=== PATIENT | female | born 1930 | race Hispanic/Latino ===

== ENCOUNTER 2016-06-30 10:04 | Outpatient (CLI) | payer MEDICARE | END 2016-06-30 10:05 | disposition home or self-care (01) | LOC: NAVSJIPCSP 10:04 | PROVIDERS: ATTEND Internal Medicine | DX: E78.5 Hyperlipidemia, unspecified (principal); E11.65 Type 2 diabetes mellitus with hyperglycemia | CPT/HCPCS: 36415; 80061; 83036 ==

== ENCOUNTER 2016-08-22 11:00 | Emergency (ER) | payer MEDICARE ==
[2016-08-22] MEDS ORDERED: Ondansetron ODT 4 MG TAB ONE (12:13)
--- NOTE | 2016-08-22 12:49 | RAD ---
NASAL BONES 3 VIEWS: Date: 08/22/16 HISTORY: Fell, with injury to nose. FINDINGS/IMPRESSION: Evidence of fracture through the distal aspect of the nasal ridge; however, there is no significant displacement or depression. Paranasal sinuses are aerated. There is hazy opacity over the right fron ingrid air cell which suggests right frontal sinus mucosal edema. POS: [facility]
--- NOTE | 2016-08-22 12:53 | RAD ---
RIGHT TIBIA AND FIBULA 2 VIEWS: Date: HISTORY: Injury to left lower extremity. FINDINGS: No evidence of fracture. Mild degenerative changes at the knee. IMPRESSION: No acute osseous abnormality. POS: [facility]
== END 2016-08-22 12:27 | disposition home or self-care (01) ==
LOC: NAV ERS 11:00
DX: S02.2XXA Fracture of nasal bones, initial encounter for closed fracture (principal); S80.11XA Contusion of right lower leg, initial encounter; E11.9 Type 2 diabetes mellitus without complications; I10 Essential (primary) hypertension; Z79.82 Long term (current) use of aspirin; Z79.899 Other long term (current) drug therapy; W17.89XA Other fall from one level to another, initial encounter
CPT/HCPCS: 70160; Q0162

== ENCOUNTER 2016-09-29 09:17 | Outpatient (CLI) | payer MEDICARE ==
[2016-09-29 13:48] LABS: Cardiac Risk 3.3 (Less than 4.5)
== END 2016-09-29 09:18 | disposition home or self-care (01) ==
LOC: NAVSJIPCSP 09:17
PROVIDERS: ATTEND Internal Medicine
DX: E78.5 Hyperlipidemia, unspecified (principal); E11.51 Type 2 diabetes mellitus with diabetic peripheral angiopathy without gangrene
CPT/HCPCS: 36415; 80061; 83036

== ENCOUNTER 2017-01-04 09:41 | Outpatient (CLI) | payer MEDICARE ==
[2017-01-04 13:05] LABS: Hemoglobin A1c 5.2 % (4.0-6.0)
== END 2017-01-04 09:42 | disposition home or self-care (01) ==
LOC: NAVSJIPCSP 09:41
PROVIDERS: ATTEND Internal Medicine
DX: E78.5 Hyperlipidemia, unspecified (principal); E11.51 Type 2 diabetes mellitus with diabetic peripheral angiopathy without gangrene; Z79.899 Other long term (current) drug therapy
CPT/HCPCS: 36415; 80061; 83036

== ENCOUNTER 2017-09-01 01:04 | Emergency (ER) | payer MEDICARE ==
[2017-09-01] MEDS ORDERED: traMADol HCl 50 MG TAB ONE (01:34)
[2017-09-01] MEDS ORDERED: Ondansetron ODT 4 MG TAB ONE (01:34)
--- NOTE | 2017-09-01 08:03 | RAD ---
THREE VIEWS LUMBAR SPINE: Date: 09-01-17 Comparison: None. History: Cough, trauma, pain. FINDINGS: Subtle lucency is seen in the region of the right L1 transverse process and right 12th rib medially w hich may be artifact or on the basis of fracture. There is mild levoscoliosis of the lumbar spine. Pe dicles appear intact on frontal imaging. There is multilevel lower lumbar spine facet hypertrophic ch sandra. There is anterolisthesis of L4 on L5 measuring 8 mm. There is extensive atherosclerotic calcifi cation of the abdominal aorta. IMPRESSION: 1. Multilevel lower lumbar spine degenerative changes with anterolisthesis of L4 on L5. 2. Questionable subtle fracture of medial 12th rib on right and right L1 transverse process. POS: [facility]
--- NOTE | 2017-09-01 08:06 | RAD ---
TWO VIEWS RIGHT HIP: Date: 09-01-17 Comparison: None. History: Fall, trauma, pain. FINDINGS: No displaced fracture or evidence of dislocation is seen. There is mild superior joint space narrowin g with mild osteophyte formation involving the acetabular roof laterally. IMPRESSION: No acute findings. If patient is unable to bear weight, further assessment with cross sectional imagi ng suggested. POS: [facility]
--- NOTE | 2017-09-01 08:37 | CT ---
PRELIMINARY REPORT/[facility]/EMERGENCY AFTER HOURS PROCEDURE: EXAM: CT Lumbar Spine Without Intravenous Contrast CLINICAL HISTORY: 86 years old, female; injury; Fall; Initial encounter; Blunt trauma; Low back pain; Injury date: 08/30; Injury details: injuries to low back / right hip from fall 2 days ago landing on right side and back. Did not hit her head, no loc, no injury to neck; Prior surgery; date: 6+ months; shantell, hystere ctomy. Stents in leg and neck. TECHNIQUE: Axial computed tomography images of the lumbar spine without intravenous contrast. All CT scans at [facility] use one or more dose reduction techniques, viz.: automated exposure control; ma/kV adjustment per patient size (including targeted exams where dose is matched to indication; i.e. head) ; or iterative reconstruction technique. Coronal and sagittal reformatted images were created and reviewed. COMPARISON: No relevant prior studies available. FINDINGS: Vertebrae: Fracture of the right transverse process of L1. Mild retrolisthesis of L5 with respect to L4. Severe central canal stenosis at L4-5. Prominent Schmorl's node of the superior endplate of T12. Other bones/joints: Fracture of the right 12th medial rib. Old fracture of the right 11th posterior r ib. Discs/spinal canal/neural foramina: Severe central canal stenosis at L3-4. Soft tissues: Unremarkable. Gallbladder and bile ducts: Status post cholecystectomy. IMPRESSION: 1. Fracture of the right 12th medial rib. 2. Fracture of the right transverse process of L1. 3. Mild retrolisthesis of L5 with respect to L4. Severe central canal stenosis at L4-5. 4. Severe central canal stenosis at L3-4. Thank you for allowing us to participate in the care of your patient. Dictated and Authenticated by: Lukas Dominguez MD 09/01/2017 3:17 AM Central Time ([place] & [place]) FINAL REPORT CT LUMBAR SPINE WITHOUT CONTRAST: HISTORY: Fall. Injury. Pain. Low back pain. COMPARISON: None. TECHNIQUE: A lumbar spine CT is performed without contrast. Reformatted images are submitted for interpretation . FINDINGS: There is diffuse bone demineralization. There is anterolisthesis of L4 upon L5. There is no evidenc e of a lumbar spine fracture. There is irregularity involving the superior endplate of T12, producin g a chronic process. Acute fracture of the right L1 transverse process is present. Fracture of the right 12th rib is noted. This report is in agreement with a preliminary report by [facility]. POS: [facility]
--- NOTE | 2017-09-01 08:39 | CT ---
PRELIMINARY REPORT/[facility]/EMERGENCY AFTER HOURS PROCEDURE: EXAM: CT Right Lower Extremity Without Intravenous Contrast, Hip CLINICAL HISTORY: 86 years old, female; Pain and injury; Fall; Initial encounter; Blunt trauma right hip, Injury date: 08/30/17; Injury details: Injury to low back / right hip from fall 2 days ago. did not hit her head, no loc, no injury to neck. initially she felt fine, able to walk without pain. Discomfort has increased since then. TECHNIQUE: Axial computed tomography images of the right hip without intravenous contrast. All CT scans at this facility use one or more dose reduction techniques, viz.: automated exposure control; ma/Kv adjustmen t per patient size (including targeted exams where dose is matched to indication; i.e. head); or iter ative reconstruction technique. Coronal and sagittal reformatted images were created and reviewed. COMPARISON: No relevant prior studies available. FINDINGS: Bones/joints: Unremarkable. No acute fracture. No dislocation. Soft tissues: Unremarkable. IMPRESSION: No acute fracture or dislocation. Thank you for allowing us to participate in the care of your patient. Dictated and Authenticated by: Lukas Dominguez MD 09/01/2017 3:37 AM Central Time ([place] & [place]) FINAL REPORT CT RIGHT LOWER EXTREMITY WITHOUT CONTRAST: CT HIP EXAM: FINDINGS: I agree with the preliminary interpretation provided above. No acute fracture or dislocation of the right hip. There is soft tissue density, which could relate to contusion and/or edema. Correlate clinically. POS: [facility]
== END 2017-09-01 03:49 | disposition home or self-care (01) ==
LOC: NAV ERS 01:04
DX: S32.019A Unspecified fracture of first lumbar vertebra, initial encounter for closed fracture (principal); S22.31XA Fracture of one rib, right side, initial encounter for closed fracture; S70.01XA Contusion of right hip, initial encounter; I10 Essential (primary) hypertension; E11.9 Type 2 diabetes mellitus without complications; Z79.899 Other long term (current) drug therapy; Z79.82 Long term (current) use of aspirin; W19.XXXA Unspecified fall, initial encounter
CPT/HCPCS: 72100; 72131; Q0162

== ENCOUNTER 2017-09-27 12:00 | Inpatient (IN) | payer MEDICARE ==
--- NOTE | 2017-09-27 12:54 | CT ---
CT OF THE BRAIN WITHOUT CONTRAST: History: Generalized weakness, altered mental status. Technique: Multiple contiguous axial images were obtained in a CT of the brain without contrast. FINDINGS: There are scattered hypodensities in the subcortical and periventricular white matter, likely seconda ry to small vessel ischemic disease. No large confluent infarction is seen. There is no evidence of h ydrocephalus, intracranial hemorrhage, or extraaxial fluid collection. The calvarium and overlying soft tissues are unremarkable. The visualized paranasal sinuses and masto id air cells are well aerated. IMPRESSION: No evidence of an acute intracranial abnormality. POS: [facility]
[2017-09-27 13:21] LABS: CKMB 1.1 ng/mL (0-6.6); Troponin I Less than 0.010 ng/mL (< 0.028)
[2017-09-27 13:21] LABS: Bilirubin Negative (Negative); Blood, Urine Negative (Negative); Clarity Clear (Clear); Glucose, Urine (Dipstick) Negative (Negative); Leukocyte Negative (Negative); Nitrite Negative (Negative); Specific Gravity, Urine 1.015 (1.005-1.030); Urobilinogen 0.2 mg/dL (0.2-1.0)
[2017-09-27 13:23] LABS: Protein, Urine (Dipstick) Trace mg/dL (Neg-Trace)
[2017-09-27 13:27] LABS: ALT (SGPT) 12 U/L (8-55); AST (SGOT) 14 U/L (5-34); Albumin 3.5 g/dL (3.4-4.8); Alkaline Phosphatase 61 U/L (40-150); Anion Gap 13 mmol/L (10-20); BUN (Urea Nitrogen) 22 mg/dL (9.8-20.1); Bilirubin, Total 0.5 mg/dL (0.2-1.2); CK (CPK) 42 U/L (29-168); Calc. Creatinine Clearance 0 mL/min (70-130); Calcium 10.5 mg/dL (7.8-10.44); Carbon Dioxide 29 mmol/L (23-31); Chloride 98 mmol/L (98-107); Estimated GFR-MDRD 65; Globulin 3.3 g/dL (2.4-3.5); Glucose 136 mg/dL (83-110); Protein, Total 6.8 g/dL (6.0-8.3); Sodium 137 mmol/L (136-145)
[2017-09-27 13:28] LABS: Hemoglobin 13.8 g/dL (12.0-16.0); MDiff Complete? YES; Mean Corpuscular HGB CONC 32.4 g/dL (32.0-36.0); Mean Corpuscular Hemoglobin 28.6 pg (27.0-31.0); Mean Corpuscular Volume 88.3 fl (81.0-99.0); Mean Platelet Volume 7.5 fL (7.4-10.4); Platelet Count 163 thou/uL (130-400); RBC Distribution Width 11.8 % (11.5-14.5); Red Blood Cell (RBC) Count 4.81 mill/uL (4.20-5.40); White Blood Cell (WBC) Count 12.1 thou/uL (4.8-10.8)
[2017-09-27 13:29] LABS: Band 4 % (5-11); Eosinophils 2 % (0-10); Lymphocytes 9 % (21-51); Monocytes 7 % (0-10); Neutrophil 78 % (42-75); PLT Morphology Comment Appears Adequate
[2017-09-27 13:30] LABS: Potassium 2.9 mmol/L (3.5-5.1)
[2017-09-27] MEDS ORDERED: Potassium Chloride 20 MEQ TAB ONE (13:53)
--- NOTE | 2017-09-27 14:49 | RAD ---
CHEST 1 VIEW: Date: 09/27/17 HISTORY: 86-year-old female with history of altered mental status and generalized weakness, unable to get out of bed. Confusion. FINDINGS: Left-sided neck endostent. Atherosclerosis of aorta with some ectasia. Heart size normal. High-riding humeral head abuts the undersurface of the lateral clavicle and acromion consistent with longstandin g chronic rotator cuff disease and associated glenohumeral joint arthropathy. There is some subtle in creased density in the right mid lung zone just adjacent to the left heart border. This could conceiv ably represent a small patch of pneumonia or pneumonitis. It may just represent some other overlying opacity. There is biapical pleural thickening, greater on the left side. IMPRESSION: Small, focal area of minimal increased density over the left mid lung zone, somewhat adjacent to the left heart border. Possibly representing a small focus of pneumonitis or may just represent some othe r overlying density. Biapical pleural thickening. Atherosclerosis of aorta with ectasia. Left lower n [place] endostent. Right glenohumeral joint arthropathy and evidence for chronic rotator cuff insufficien cy. POS: [facility]
[2017-09-27 15:02] VITALS: BMI 19.7
[2017-09-27] MEDS: D5 1/2 NS w/40 mEq KCL 1,000 ML IV SCH (15:20)
[2017-09-27] MEDS ORDERED: Ondansetron ODT 4 MG TAB PO PRN (17:28)
[2017-09-27] MEDS: Acetaminophen 500 MG TAB PO PRN (17:44)
[2017-09-27] MEDS ORDERED: HumaLOG 300 UNITS/3 ML VIAL SC PRN ×2 (18:00)
[2017-09-27] MEDS ORDERED: Dextrose 50% Abboject 50 ML SYRINGE SLOW IVP PRN (18:00)
[2017-09-27] MEDS ORDERED: Dextrose 5% in Water 1,000 ML IV PRN (18:00)
--- NOTE | 2017-09-27 20:28 | HP ---
DATE OF ADMISSION: 09/27/2017 CHIEF COMPLAINT: Lightheadedness, dizziness, diarrhea, altered mental status, and decreased p.o. int neri. BRIEF HISTORY: This is a very pleasant 86-year-old female who apparently has not been feel ing well since 09/22/2017. She apparently noticed diarrhea and anorexia as well as nausea and has no t been eating very much except for one Boost shake a day. She has been progressively getting weak an d this morning she apparently was disoriented, had significant mobility issues and lightheadedness, s o the daughter called my office. My medical equipment repair technician advised her to be taken to the nearest emergen cy room or call 911. She did come to the emergency room and was evaluated and her workup was essenti ally unremarkable except for mild dehydration and hypokalemia. Her CT brain was within normal limits . She was started on IV fluids and potassium replacement. When I see her this evening, she is alrea dy looking and feeling a lot better. She states that she is fci back to normal. She is having s ome neck stiffness. She denies any headaches. She denies any blurred vision. She denies any focal numbness or weakness. She denies any fever or chills. She denies any unusual activity or diet. PAST MEDICAL HISTORY: 1. Dyslipidemia. 2. Diabetes mellitus type 2 on diet controlled. 3. Peripheral vascular disease. 4. Degenerative joint disease. 5. Hypertension. PAST SURGICAL HISTORY: 1. Abdominal hysterectomy in 1974. 2. Cholecystectomy in 1976. 3. Left leg PTCA and stent [place] [address] Jeffery. 4. Cardiac catheterization in 02/[address] Jeffery. 5. Carotid stenting for 10/01/[address] Jeffery. MEDICATIONS: 1. She is supposed to be on CoQ10 100 mg capsule once a day. 2. Aspirin 81 mg daily. 3. Plavix 75 mg daily. 4. Losartan HCTZ 100/25 one tablet daily. 5. Amlodipine 2.5 mg at night. FAMILY HISTORY: Dad in a car accident at age 52, mother at age 82 with a CVA. She did hav e diabetes. PSYCHOSOCIAL HISTORY: No tobacco abuse. She does drink a cup of coffee every morning. No alcohol o r IV drug abuse. Lives at home, but has a daughter and a grandson, who really help take care of her. ALLERGIES: CODEINE, it causes nausea. IODINE causes swelling and itching. REVIEW OF SYSTEMS: Cardiovascular: Denies any chest pain, shortness of breath, palpitations, paroxy smal nocturnal dyspnea, orthopnea, pedal edema. Respiratory: Denies any chronic cough, expectoratio n or pleuritic type chest pain. Gastrointestinal: Nausea and diarrhea. She states the diarrhea is much improved. No hematemesis, melena, hematochezia. Genitourinary: Denies any frequency, urgency, dysuria or hematuria. Central nervous system: Generalized weakness and some altered mental status. Apparently, prior to arrival to the ER, according to the daughter in her phone conversation with my medical equipment repair technician, but did now she is pretty much back to her baseline. Musculoskeletal system: Co nstant joint pains due to her arthritis. HEENT: She denies any difficulty with speech, vision, hear ing, or swallowing. She denies any rash. Neck: No Enlarged lymph nodes. No thyroid problems. No polyuria, no thyroid problems. PHYSICAL EXAMINATION: GENERAL: Pleasant 86-year-old female resting comfortably in no acute distress. She is sandhya rt, awake, and oriented x3. No family at bedside. VITAL SIGNS: She is afebrile, heart rate is 98, respirations 20, oxygen saturation 98% on room air, blood pressure 159/69. HEENT: Normocephalic, atraumatic. Pupils are equal and reactive to light and accommodation. NECK: No JVD, thyromegaly, cervical adenopathy, throat exudates, no carotid bruits. CARDIOVASCULAR: S1, S2 plus, rate and rhythm regular. RESPIRATORY: Normal vesicular breath sounds heard in all lung greer. ABDOMEN: Soft, scaphoid, nontender, bowel sounds heard in all quadrants. EXTREMITIES: Without cyanosis or clubbing. Peripheral pulses are palpable, but decreased. Evidence for DJD is present. NETWORK SYSTEMS ANALYST: Grossly nonfocal. LABORATORY VALUES: Done in the emergency room shows a white count of 12.1, which is slightly elevate d. H&H is 13.8 and 42.5, 78% neutrophils, 4% bands, and 9% lymphocytes. Electrolytes: Sodium 137, potassium 2.9, BUN is elevated at 22, creatinine 0.83. Blood sugar was 136, calcium was slightly bonnie vated at 10.5, AST and ALT were normal. Urinalysis is unremarkable. Chest x-ray done in the emergen cy room is read as a minimally increased density over the left mid lung zone, adjacent to the left he art border, suggesting possible small focus of pneumonitis and/or just overlying density. Brain CT s hows no evidence of acute intracranial abnormality. IMPRESSION: 1. Possible viral gastroenteritis with decreased p.o. intake, dehydration, hypokalemia and hypercalc emia with mild leukocytosis. 2. Hypertension, reasonable control. 3. Diabetes mellitus type 2 on diet control. 4. Peripheral vascular disease. 5. Dyslipidemia, on diet control. 6. Degenerative joint disease. PLAN: 1. IV fluids, normal saline with 40 of K. D5 normal saline with 40 of K at 100 mL an hour. 2. Resume home medications, but hold her losartan/HCTZ. 3. 1800 calorie heart healthy diet. 4. Accu-Cheks with sliding scale coverage. 5. PlexiPulses for DVT prophylaxis. 6. Recheck laboratory values in the morning including CBC and BMP. 7. Watch for any respiratory distress. The pneumonia may show better after hydration. 8. PT, OT evaluate and treat. 9. Discussed with patient in detail. All questions answered. 10. No family at bedside.
[2017-09-28] MEDS: D5 1/2 NS w/40 mEq KCL 1,000 ML IV SCH (01:26)
[2017-09-28 05:41] LABS: Band 4 % (5-11); Eosinophils 3 % (0-10); Hemoglobin 13.3 g/dL (12.0-16.0); Lymphocytes 13 % (21-51); MDiff Complete? YES; Mean Corpuscular HGB CONC 33.5 g/dL (32.0-36.0); Mean Corpuscular Hemoglobin 29.3 pg (27.0-31.0); Mean Corpuscular Volume 87.5 fl (81.0-99.0); Mean Platelet Volume 6.7 fL (7.4-10.4); Monocytes 7 % (0-10); Neutrophil 73 % (42-75); PLT Morphology Comment Appears Adequate; Platelet Count 161 thou/uL (130-400); RBC Distribution Width 11.9 % (11.5-14.5); RBC Morphology Normal; Red Blood Cell (RBC) Count 4.53 mill/uL (4.20-5.40); White Blood Cell (WBC) Count 9.5 thou/uL (4.8-10.8)
[2017-09-28 05:48] LABS: Anion Gap 10 mmol/L (10-20); BUN (Urea Nitrogen) 12 mg/dL (9.8-20.1); Calc. Creatinine Clearance 56 mL/min (70-130); Calcium 9.8 mg/dL (7.8-10.44); Carbon Dioxide 29 mmol/L (23-31); Chloride 105 mmol/L (98-107); Estimated GFR-MDRD 80; Glucose 122 mg/dL (83-110); Potassium 3.7 mmol/L (3.5-5.1); Sodium 140 mmol/L (136-145)
[2017-09-28] MEDS ORDERED: Famotidine 20 MG TAB PO SCH (09:00)
[2017-09-28] MEDS ORDERED: Aspirin 81 mg Enteric Coated Tablet PO SCH (09:00)
[2017-09-28] MEDS ORDERED: Clopidogrel Bisulfate 75 MG TAB PO SCH (09:00)
[2017-09-28] MEDS ORDERED: Amlodipine 5 MG TAB PO SCH (09:00)
[2017-09-28] MEDS: Acetaminophen 500 MG TAB PO PRN (10:31)
[2017-09-28 11:35] VITALS: BP 135/61; TEMP 98.4
--- NOTE | 2017-09-28 13:59 | DIS ---
DATE OF ADMISSION: 09/27/2017 DATE OF DISCHARGE: 09/28/2017 PRINCIPAL DIAGNOSES: Viral gastroenteritis, hypokalemia, mild leukocytosis and dehydration. SECONDARY DIAGNOSES: 1. Hypertension. 2. Diabetes mellitus type 2 on diet control. 3. Dyslipidemia. 4. Peripheral vascular disease, status post stent placement. 5. Degenerative joint disease. COMPLICATIONS: None. ADVERSE REACTIONS: None. PROCEDURES: None. CONSULTATIONS: None. HOSPITAL COURSE: The patient was admitted on 09/27/2017 after having diarrhea for 3 days, decreased p.o. intake and daughter noticing altered mental status and significant weakness. When she was evalu ated in the emergency room, she was noticed to have mild leukocytosis as well as hypokalemia and mild dehydration with elevated BUN. CT brain was negative. She was admitted to the hospital on IV fluid s with potassium replacement as well as oral potassium replacement. She responded very well to the a briseyda and this morning she ate more than 75% of her breakfast according to her daughter and she ambula kd all the way around the nurses' station with minimal assistance. The patient really wants to go h ome and daughter is her primary caregiver who is here and she also wants her mom to go home and state s that they can take care of her at home. I reinforced the need for her to continue to eat and drink well. She will follow up in my office in a week's time. DISCHARGE MEDICATIONS: Are same as admission which are, 1. Losartan/HCTZ 100/25 one tablet daily. 2. Pepcid 20 mg b.i.d. 3. Plavix 75 mg daily. 4. Aspirin 81 mg daily. 5. Amlodipine 2.5 mg daily. DIET: Heart healthy, 1800 calorie ADA diet. ACTIVITY: As tolerated. She is to follow up in my office in a week's time. She is to call me with any questions or concerns. She is to return to the emergency if there are any problems. She is to contact me as well. PHYSICAL EXAMINATION: VITAL SIGNS: On the day of discharge, she is afebrile, heart rate is 89, respirations 23, oxygen sat uration 96%, blood pressure 133/61. CARDIOVASCULAR SYSTEM: S1, S2 plus. RESPIRATORY SYSTEM: Normal vesicular breath sounds. ABDOMEN: Soft, nontender, bowel sounds heard in all quadrants. EXTREMITIES: Without cyanosis or clubbing. Peripheral pulses are palpable. CENTRAL NERVOUS SYSTEM: Grossly nonfocal. LABORATORY DATA: Laboratory values done this morning shows sodium 140, potassium 3.7, BUN and creati nine 12 and 0.7. White count is 9.5, hemoglobin and hematocrit is 13.3 and 39.6. Discussed with patient and daughter in detail. There is no need for any prescriptions. We will give her another 20 mEq of potassium p.o. prior to discharge. We will double check with therapy and make sure she is safe for discharge.
== END 2017-09-28 15:30 | disposition home or self-care (01) | DRG 392 ==
LOC: NAV ERS 12:00 → NAV ACUTE 14:46
PROVIDERS: ADMIT Internal Medicine; ATTEND Internal Medicine
DX: A08.4 Viral intestinal infection, unspecified (principal); E11.51 Type 2 diabetes mellitus with diabetic peripheral angiopathy without gangrene; E86.0 Dehydration; D72.829 Elevated white blood cell count, unspecified; E78.5 Hyperlipidemia, unspecified; E87.6 Hypokalemia; I10 Essential (primary) hypertension; M19.90 Unspecified osteoarthritis, unspecified site; Z86.73 Personal history of transient ischemic attack (TIA), and cerebral infarction without residual deficits; Z85.72 Personal history of non-Hodgkin lymphomas; E83.52 Hypercalcemia
CPT/HCPCS: 36415; 36416; 51701; 70450; 71045; 80048; 80053; 81003; 82553; 83880; 84484; 85025; 93005; A4353; G8978-GP-CJ; G8979-GP-CI

== ENCOUNTER 2018-05-07 09:10 | Emergency (ER) | payer MEDICARE ==
[2018-05-07 10:01] LABS: Bilirubin Negative (Negative); Blood, Urine Trace (Negative); Clarity Clear (Clear); Glucose, Urine (Dipstick) Negative (Negative); Leukocyte Negative (Negative); Nitrite Negative (Negative); Protein, Urine (Dipstick) Negative (Neg-Trace); Urobilinogen 0.2 mg/dL (0.2-1.0)
[2018-05-07 10:25] LABS: RBC/HPF 0-3 HPF (0-3); Squamous Epithelial 0-3 HPF (0-3)
[2018-05-07] MEDS ORDERED: Phenazopyridine HCl 97.5 MG TABLET ONE (10:25)
[2018-05-07 11:28] LABS: #Eosinphils 0.2 thou/uL (0.0-0.7); #Lymphocytes 1.4 thou/uL (1.20-3.40); #Monocytes 0.5 thou/uL (0.11-0.59); #Neutrophils 4.1 thou/uL (1.40-6.50); %Basophils 0.7 % (0.0-1.0); %Lymphocytes 22.6 % (21.0-51.0); %Monocytes 8.2 % (0.0-10.0); %Neutrophils 65.6 % (42.0-75.0); Hemoglobin 14.1 g/dL (12.0-16.0); Mean Corpuscular HGB CONC 30.9 g/dL (32.0-36.0); Mean Corpuscular Hemoglobin 30.2 pg (27.0-31.0); Mean Corpuscular Volume 97.6 fL (78.0-98.0); Mean Platelet Volume 6.6 fL (7.4-10.4); Platelet Count 163 thou/uL (130-400); RBC Distribution Width 13.5 % (11.5-14.5); Red Blood Cell (RBC) Count 4.68 mill/uL (4.20-5.40); White Blood Cell (WBC) Count 6.3 thou/uL (4.8-10.8)
[2018-05-07 11:50] LABS: ALT (SGPT) 223 U/L (8-55); AST (SGOT) 383 U/L (5-34); Albumin 3.4 g/dL (3.4-4.8); Alkaline Phosphatase 107 U/L (40-150); Anion Gap 13 mmol/L (10-20); BUN (Urea Nitrogen) 11 mg/dL (9.8-20.1); Bilirubin, Total 0.6 mg/dL (0.2-1.2); Calc. Creatinine Clearance 0 mL/min (70-130); Calcium 10.1 mg/dL (7.8-10.44); Carbon Dioxide 24 mmol/L (23-31); Chloride 106 mmol/L (98-107); Estimated GFR-MDRD 76; Glucose 99 mg/dL (83-110); Lipase 43 U/L (8-78); Potassium 4.4 mmol/L (3.5-5.1); Protein, Total 6.4 g/dL (6.0-8.3); Sodium 139 mmol/L (136-145)
--- NOTE | 2018-05-07 15:53 | CT ---
ABDOMEN AND PELVIC CT SCAN WITHOUT IV CONTRAST: HISTORY: An 87-year-old female with a history of abdominal pain, possibly urinary tract infection. FINDINGS: There is some minimal scarring in the right middle lobe and lingula with some air bronchograms and so me minimal bronchiectasis in the lingula. Evidence for prior cholecystectomy. Dilated common bile d uct up to 1.5 cm with some central intrahepatic ductal dilatation. There are several circumscribed l ow-attenuation foci throughout the right and left lobes of the liver, not definitively characterized on this study. They are mostly low attenuation and could be cysts, but there is no definitive CT cri teria for a definitely benign cyst. The pancreas and spleen and adrenal glands appear unremarkable. No evidence for overt renal calculus or acute obstruction. Atherosclerosis of the aorta. There appears to be a left iliac stent. Fairly markedly distended urinary bladder. A distinct anatomic ap pendix is not seen, but there is no convincing CT evidence for acute appendicitis. IMPRESSION: Some minimal scarring in the right middle lobe and lingula including some lingular bronchiectasis. S tatus post cholecystectomy with dilated common bile duct and central intrahepatic ducts. Nonspecific scattered low-attenuation foci within the liver, possibly cysts but not definitely diagnostic but do es not definitely meet all the diagnostic criteria for a simple benign cyst on this noncontrast study . No renal calculus or acute obstruction. Prominent atherosclerotic calcification changes with s ome stenotic changes of the common iliac arteries and a left iliac artery stent. Distended urinary b ladder. Lumbar canal stenosis, particularly at L3-L4. Scattered air and fluid in some borderline-si ze small bowel loops, nonspecific, without overt bowel obstruction. This could conceivably be seen i n minimal nonspecific ileitis. POS: [facility]
== END 2018-05-07 13:42 | disposition home or self-care (01) ==
LOC: NAV ERS 09:10
DX: R30.0 Dysuria (principal); R79.89 Other specified abnormal findings of blood chemistry; E11.9 Type 2 diabetes mellitus without complications; I10 Essential (primary) hypertension; Z79.899 Other long term (current) drug therapy
CPT/HCPCS: 74176; 80053; 81003; 81015; 83690; 85025; 96360